=== PATIENT | female | born 1990 | race Caucasian/White ===

== ENCOUNTER 2016-04-03 13:41 | Emergency (ER) | payer MEDICAID ==
[2015-05-01 04:54] VITALS: BMI 36.9
[~2016-04-03 13:41] MED LIST: ADVAIR 500/501 DISK INH; AMBIEN10 MG PO; ANTIBIOTIC; EFFEXOR XR150 MG PO; HYDROCODONE-APA1 TAB PO; IBUPROFEN600 MG PO; IBUPROFEN800 MG PO; KLONOPIN1 MG PO; LAMICTAL200 MG PO; LEVAQUIN; LEVAQUIN500 MG PO; PHENERGAN25 MG RC; ULTRAM50 MG PO; VENTOLIN HFA18 GM INH; VIBRAMYCIN 100100 MG PO; ZITHROMAX250 MG PO; ZOFRAN4 MG PO
[2016-04-03 14:12] LABS: BASOPHILS 0.3 % (0.0-2.0); HEMATOCRIT 40.4 % (36.0-48.0); HEMOGLOBIN 13.5 g/dL (12-16); IMMATURE GRANULOCYTES 0.3 % (0-5); LYMPHOCYTES 32.6 % (15-50); MCHC 33.4 g/dL (31.0-37.0); MCV 95.7 fL (80.0-100.0); MEAN PLATELET VOLUME 10.9 fL (7.4-10.4); MONOCYTES 5.9 % (2-11); NEUTROPHILS 58.9 % (40-80); RBC 4.22 10x6/uL (4.00-5.40); RDW 12.7 % (11.5-14.5); WBC 11.5 10x3/uL (4.8-10.8)
[2016-04-03 14:13] LABS: PLATELET COUNT 194 10x3/uL (130-400)
[2016-04-03 14:14] LABS: UDS - AMPHET POSITIVE QUAL (NEGATIVE); UDS - BARB NEGATIVE QUAL (NEGATIVE); UDS - BENZO POSITIVE QUAL (NEGATIVE); UDS - COCAINE NEGATIVE QUAL (NEGATIVE); UDS - METH NEGATIVE QUAL (NEGATIVE); UDS - OPIATE NEGATIVE QUAL (NEGATIVE); UDS - PCP NEGATIVE QUAL (NEGATIVE); UDS - THC NEGATIVE QUAL (NEGATIVE)
[2016-04-03 14:29] LABS: ALBUMIN 3.8 g/dL (3.4-5.0); ALKALINE PHOSPHATASE 78 U/L (46-116); ALT (SGPT) 21 U/L (10-68); CALC OSMOLALITY 273 mosm/kg (275-300); CALCIUM 8.5 mg/dL (8.5-10.1); CARBON DIOXIDE 27.2 mmol/L (21.0-32.0); CHLORIDE - SERUM 103 mmol/L (98-107); CREATININE - SERUM 0.6 mg/dL (0.6-1.3); GLUCOSE 82 mg/dL (74-106); POTASSIUM - SERUM 4.6 mmol/L (3.5-5.1); PROTEIN - SERUM 6.8 g/dL (6.4-8.2); SODIUM 138 mmol/L (136-145); UREA NITROGEN 10 mg/dL (7-18); eGFR NON AFRICAN AMERICAN > 90 mL/min (90-120)
== END 2016-04-03 15:34 | disposition home or self-care (01) ==
LOC: D.ER 13:41
PROVIDERS: Emergency Medicine
DX: R55 Syncope and collapse (principal); J45.909 Unspecified asthma, uncomplicated; F31.9 Bipolar disorder, unspecified; G47.00 Insomnia, unspecified; F17.200 Nicotine dependence, unspecified, uncomplicated

== ENCOUNTER 2016-10-03 21:24 | Emergency (ER) | payer MEDICAID ==
[2015-05-01 04:54] VITALS: BMI 36.9
[2016-10-03 22:33] LABS: APPEARANCE CLEAR (CLEAR); BILIRUBIN NEGATIVE (NEGATIVE); COLOR YELLOW (YELLOW); GLUCOSE NEGATIVE (NEGATIVE); HCG URINE NEGATIVE (NEGATIVE); KETONE NEGATIVE (NEGATIVE); LEUKOCYTE ESTERASE TRACE (NEGATIVE); NITRITE NEGATIVE (NEGATIVE); PROTEIN NEGATIVE (NEGATIVE); UROBILINOGEN NORMAL (NORMAL)
[2016-10-03 22:36] LABS: EPITHELIAL CELLS 0-5 /hpf (0-5); WHITE CELLS - URINE 0-5 /hpf (0-5)
[2016-10-03 22:37] LABS: BACTERIA MODERATE /hpf (NONE SEEN)
[2016-10-03 22:40] LABS: BASOPHILS 0.2 % (0-2); HEMATOCRIT 40.3 % (36.0-48.0); HEMOGLOBIN 13.4 g/dL (12-16); IMMATURE GRANULOCYTES 0.6 % (0-5); LYMPHOCYTES 33.2 % (15-50); MCH 32.2 pg (26.0-34.0); MCHC 33.3 g/dL (31.0-37.0); MCV 96.9 fL (80.0-100.0); MEAN PLATELET VOLUME 10.7 fL (7.4-10.4); MONOCYTES 4.2 % (2-11); NEUTROPHILS 59.8 % (40-80); PLATELET COUNT 192 10x3/uL (130-400); RBC 4.16 10x6/uL (4.00-5.40); RDW 13.1 % (11.5-14.5); WBC 12.5 10x3/uL (4.8-10.8)
[2016-10-03 22:54] LABS: ALBUMIN 3.8 g/dL (3.4-5.0); ALKALINE PHOSPHATASE 71 U/L (46-116); ALT (SGPT) 22 U/L (10-68); CALC OSMOLALITY 276 mosm/kg (275-300); CALCIUM 8.7 mg/dL (8.5-10.1); CARBON DIOXIDE 28.9 mmol/L (21.0-32.0); CHLORIDE - SERUM 103 mmol/L (98-107); CREATININE - SERUM 0.5 mg/dL (0.6-1.3); GLUCOSE 89 mg/dL (74-106); LIPASE 104 U/L (73-393); POTASSIUM - SERUM 4.1 mmol/L (3.5-5.1); PROTEIN - SERUM 6.9 g/dL (6.4-8.2); SODIUM 140 mmol/L (136-145); UREA NITROGEN 10 mg/dL (7-18); eGFR NON AFRICAN AMERICAN > 90 mL/min (90-120)
== END 2016-10-04 00:50 | disposition home or self-care (01) ==
LOC: D.ER 21:24
PROVIDERS: Emergency Medicine
DX: R10.9 Unspecified abdominal pain (principal); R30.0 Dysuria; F17.200 Nicotine dependence, unspecified, uncomplicated; J45.909 Unspecified asthma, uncomplicated; F31.9 Bipolar disorder, unspecified

== ENCOUNTER 2016-10-15 13:21 | Inpatient (IN) | payer MEDICAID ==
[~2016-10-15] VITALS: Ht 152.4 cm; Wt 61.4 kg
[2016-10-15] VITALS (8 sets, daily range): BP systolic 119–132; BP diastolic 78–97; Ht 152.4 cm; Wt 61.4 kg
[2016-10-15 13:49] LABS: BASOPHILS 0.2 % (0-2); EOSINOPHILS 1.4 % (0-7); HEMATOCRIT 40.1 % (36.0-48.0); HEMOGLOBIN 13.6 g/dL (12-16); IMMATURE GRANULOCYTES 0.3 % (0-5); LYMPHOCYTES 24.5 % (15-50); MCH 32.8 pg (26.0-34.0); MCHC 33.9 g/dL (31.0-37.0); MCV 96.6 fL (80.0-100.0); MEAN PLATELET VOLUME 10.8 fL (7.4-10.4); MONOCYTES 6.1 % (2-11); NEUTROPHILS 67.5 % (40-80); PLATELET COUNT 176 10x3/uL (130-400); RBC 4.15 10x6/uL (4.00-5.40); RDW 12.8 % (11.5-14.5); WBC 11.4 10x3/uL (4.8-10.8)
[2016-10-15 13:55] LABS: APPEARANCE HAZY (CLEAR); BILIRUBIN NEGATIVE (NEGATIVE); COLOR DK YELLOW (YELLOW); GLUCOSE NEGATIVE (NEGATIVE); KETONE NEGATIVE (NEGATIVE); LEUKOCYTE ESTERASE NEGATIVE (NEGATIVE); NITRITE NEGATIVE (NEGATIVE); PROTEIN NEGATIVE (NEGATIVE); UROBILINOGEN NORMAL (NORMAL)
[2016-10-15 14:04] LABS: UDS - AMPHET POSITIVE QUAL (NEGATIVE); UDS - BARB NEGATIVE QUAL (NEGATIVE); UDS - BENZO POSITIVE QUAL (NEGATIVE); UDS - COCAINE NEGATIVE QUAL (NEGATIVE); UDS - METH NEGATIVE QUAL (NEGATIVE); UDS - OPIATE NEGATIVE QUAL (NEGATIVE); UDS - PCP NEGATIVE QUAL (NEGATIVE); UDS - THC POSITIVE QUAL (NEGATIVE)
[2016-10-15 14:06] LABS: HCG SERUM NEGATIVE (NEGATIVE)
[2016-10-15 14:10] LABS: ALBUMIN 4.1 g/dL (3.4-5.0); ALKALINE PHOSPHATASE 89 U/L (46-116); ALT (SGPT) 22 U/L (10-68); CALC OSMOLALITY 272 mosm/kg (275-300); CALCIUM 8.6 mg/dL (8.5-10.1); CARBON DIOXIDE 31.8 mmol/L (21.0-32.0); CHLORIDE - SERUM 100 mmol/L (98-107); CREATININE - SERUM 0.6 mg/dL (0.6-1.3); GLUCOSE 94 mg/dL (74-106); POTASSIUM - SERUM 3.4 mmol/L (3.5-5.1); PROTEIN - SERUM 7.1 g/dL (6.4-8.2); SODIUM 137 mmol/L (136-145); UREA NITROGEN 11 mg/dL (7-18); eGFR NON AFRICAN AMERICAN > 90 mL/min (90-120)
--- NOTE | 2016-10-15 16:00 | NUR ---
REC'D FROM ER VIA STRETCHER. TRANSFER TO ICU BED BY TOTAL LIFT. CONNECTED TO MONITOR AND VS OBTAINED. UNABLE TO OBTAIN COMPLETE HISTORY. ASSESSMENT COMPLETE.
--- NOTE | 2016-10-15 19:15 | NUR ---
SHIFT ASSESSMENT COMPLETED. SEE ASSESSMENT. WILL AWAKE BRIEFLY TO ANSWER QUESTIONS THEN FALLS BACK ASLEEP. LEFT NARE NGT CLAMPED AT APPROX. 70CM. BLACK CHARCOAL NOTED IN TUBING. LEFT AC PIV WITH NS @ 200ML/HR. DENIES NEED TO VOID AT THIS TIME. SCD'S ON AND WORKING TO BILATERAL LE'S. CLEAR LUNGS TO AUSCULTATION. DIMINISHED IN THE BASES. WILL MONITOR.
--- NOTE | 2016-10-15 20:45 | NUR ---
[facility] POISON CONTROL CALLED TO GET UPDATE. UPDATED ON VITALS AND LAB RESULTS. EYES CLOSED. NO ACUTE DISTRESS NOTED. WILL MONITOR.
--- NOTE | 2016-10-15 21:00 | NUR ---
MOM AT BEDSIDE FOR VISITATION. HOME MEDS LOOKED AT WITH HER MOM.
--- NOTE | 2016-10-15 22:15 | NUR ---
UNABLE TO USE BEDPAN TO URINATE. REFUSES TO HAVE GONSALEZ CATHETER AT THIS TIME. TOTAL LINEN CHANGE AT THIS TIME DUE TO INCONTINENCE OF BOWEL.
--- NOTE | 2016-10-15 22:30 | NUR ---
MOM OBTAINED FROM WAITING ROOM NOW SHE IS MORE AWAKE. WITH ASSIST X2 WAS ABLE TO PIVOT TO BEDSIDE COMMODE. HAD A LARGE, BLACK, LIQUID BM AND URINATED. BOTH TOTALED APPROX. 500ML. BACK TO BED. BED ALARM ON. MOM TALKED WITH HER FOR A FEW MINUTES THEN SHE WENT BACK TO WAITING ROOM. WILL MONITOR.
[2016-10-15] MEDS ORDERED: CLONAZEPAM2 MG/TAB PO (23:47)
[2016-10-15] MEDS ORDERED: ZOFRAN ODT4 MG/UDTAB PO (23:48)
[2016-10-15] MEDS ORDERED: LEXAPRO20 MG PO (23:50)
[2016-10-15] MEDS ORDERED: ADDERALL 10 MG10 MG PO (23:50)
[2016-10-15] MEDS ORDERED: AMBIEN10 MG PO (23:51)
[2016-10-15] MEDS ORDERED: LAMICTAL150 MG PO (23:52)
[2016-10-15] MEDS ORDERED: DESERYL100 MG PO (23:52)
[2016-10-16] VITALS (23 sets, daily range): BP systolic 100–144; BP diastolic 31–100
--- NOTE | 2016-10-16 00:30 | NUR ---
LAYING ON RT SIDE. NO ACUTE DISTRESS NOTED. WILL MONITOR.
--- NOTE | 2016-10-16 02:00 | NUR ---
RETOOK B/P DUE TO LOW READING. BACK TO BASELINE AFTER ADJUSTED ARM AND CUFF. WILL MONITOR. EYES REMAIN CLOSED. RESP RATE 14. WILL MONITOR.
--- NOTE | 2016-10-16 03:00 | NUR ---
DENIES NEEDING THE BATHROOM TO VOID. REPORTS "I'M FREEZING". TURNED UP TEMPERATURE IN ROOM WARMER. TEMP ASSESSED TEMPORALLY. TEMP 97.6. REASSESSMENT COMPLETED. SEE ASSESSMENT FLOWSHEET. WILL MONITOR.
--- NOTE | 2016-10-16 04:00 | NUR ---
MOISE, PHLEBO AT BEDSIDE TO DRAW AM LABS. AWOKE BRIEFLY. WILL MONITOR.
[2016-10-16 04:19] LABS: BASOPHILS 0.2 % (0-2); EOSINOPHILS 1.8 % (0-7); HEMATOCRIT 39.4 % (36.0-48.0); IMMATURE GRANULOCYTES 0.3 % (0-5); LYMPHOCYTES 29.7 % (15-50); MEAN PLATELET VOLUME 10.7 fL (7.4-10.4); PLATELET COUNT 173 10x3/uL (130-400); RBC 4.06 10x6/uL (4.00-5.40); RDW 12.9 % (11.5-14.5); WBC 11.1 10x3/uL (4.8-10.8)
[2016-10-16 04:36] LABS: ALBUMIN 3.3 g/dL (3.4-5.0); ALKALINE PHOSPHATASE 73 U/L (46-116); ALT (SGPT) 19 U/L (10-68); BILIRUBIN - TOTAL 0.34 mg/dL (0.2-1.3); CALC OSMOLALITY 278 mosm/kg (275-300); CALCIUM 7.4 mg/dL (8.5-10.1); CARBON DIOXIDE 27.7 mmol/L (21.0-32.0); CHLORIDE - SERUM 107 mmol/L (98-107); CREATININE - SERUM 0.5 mg/dL (0.6-1.3); GLUCOSE 97 mg/dL (74-106); POTASSIUM - SERUM 3.2 mmol/L (3.5-5.1); PROTEIN - SERUM 6.1 g/dL (6.4-8.2); SODIUM 141 mmol/L (136-145); eGFR NON AFRICAN AMERICAN > 90 mL/min (90-120)
[2016-10-16 04:37] LABS: UREA NITROGEN 6 mg/dL (7-18)
--- NOTE | 2016-10-16 05:55 | NUR ---
TURNED SELF TO LEFT SIDE. COVERED BACK SIDE WITH COVERS. NOT INCONTINENT OF BOWEL NOTED AT THIS TIME. WILL MONITOR.
--- NOTE | 2016-10-16 06:28 | NUR ---
DR. LAND SPOKE WITH MOM AT BEDSIDE.
--- NOTE | 2016-10-16 07:38 | NUR ---
CONSULT FOR DR. RUTLEDGE FAXED TO [facility]. ARRIVAL OF FAX VERIFIED BY JOSE.
--- NOTE | 2016-10-16 19:00 | NUR ---
REPORT RECEIVED. ASSESSMENT COMPLETE PER FLOW SHEET. PT LAYING IN BED ALERT AND ORIENTED. SPEECH CLEAR. PUPILS SIZE 4 MM, BRISK REACTION. EYES ARE EDEMATOUS. MUCOUS MEMBRANES MOIST. S1S2 PRESENT. TELEMETRY MONITORING SINUS RHYTHM RATE OF 76. LT AC PIV INFUSING NS AT 125 MLS/HR, DRESSING CDI. BS ACTIVE X4. RADIAL AND POPLITEAL PULSES PALP. CAPILLARY REFILL <3 SECS UPPER AND LOWER EXTREMITIES. SKIN WARM AND DRY. SCDS ON. BED IN LOWEST POSITION. CALL LIGHT WITHIN REACH. DENIES NEEDS AT THIS TIME. WILL CONTINUE TO MONITOR.
--- NOTE | 2016-10-16 21:00 | NUR ---
NO VISITORS AT THIS TIME. MEDICATION ADMINISTERED PER EMAR. VSS. DENIES NEEDS AT THIS TIME. CALL LIGHT WITHIN REACH. BED IN LOWEST POSITION.
--- NOTE | 2016-10-16 22:10 | NUR ---
ASSISSTED PT TO BED SIDE COMMODE. LILIBETH MCCLUREING PROVIDED PER REQUEST. PT BACK IN BED. VSS. DENIES FURTHER NEEDS AT THIS TIME. WILL CONTINUE TO MONITOR.
--- NOTE | 2016-10-16 23:00 | NUR ---
REASSESSMENT COMPLETE PER FLOW SHEET, SEE FOR DETAILS. VSS. SODA PROVIDED PER REQUEST. BED IN LOWEST POSITION. CALL LIGHT WITHIN REACH. WILL CONTINUE TO MONITOR.
--- NOTE | 2016-10-16 23:20 | NUR ---
LAYING IN BED, TEARFUL. SAT DOWN NEXT TO HER AND LISTENED SHE DISCUSSED WHY SHE WAS ADMITTED. PT DENIES THE NEED FOR SELF-HARM. INFORMED HER THAT SHE CAN PUSH THE CALL LIGHT IF SHE NEEDS ANYTHING OR SOMEONE TO TALK TO. PT WAS APPRECIATIVE AND VERBALIZED UNDERSTANDING. DENIES FURTHER NEEDS AT THIS TIME. CALL LIGHT WITHIN REACH. BED IN LOWEST POSITION. WILL CONTINUE TO MONITOR.
[2016-10-17] VITALS (19 sets, daily range): BP systolic 103–133; BP diastolic 59–89
--- NOTE | 2016-10-17 01:00 | NUR ---
LAYING IN BED SLEEPING. VSS. WILL CONTINUE TO MONITOR.
--- NOTE | 2016-10-17 02:03 | NUR ---
AWAKE, VANILLA PUDDING PROVIDED PER REQUEST. VSS. DENIES FURTHER NEEDS AT THIS TIME. CALL LIGHT WITHIN REACH.
--- NOTE | 2016-10-17 03:00 | NUR ---
REASSESSMENT COMPLETE PER FLOW SHEET, SEE FOR DETAILS. NO ACUTE CHANGES NOTED. DENIES NEEDS AT THIS TIME. VSS. CALL LIGHT WITHIN REACH. BED IN LOWEST POSITION. WILL CONTINUE TO MONITOR.
[2016-10-17 04:19] LABS: BASOPHILS 0.2 % (0-2); EOSINOPHILS 2.6 % (0-7); HEMATOCRIT 36.5 % (36.0-48.0); IMMATURE GRANULOCYTES 0.4 % (0-5); LYMPHOCYTES 30.9 % (15-50); MCH 32.3 pg (26.0-34.0); MCHC 32.9 g/dL (31.0-37.0); MCV 98.4 fL (80.0-100.0); MEAN PLATELET VOLUME 10.7 fL (7.4-10.4); NEUTROPHILS 58.9 % (40-80); PLATELET COUNT 165 10x3/uL (130-400); RBC 3.71 10x6/uL (4.00-5.40); WBC 11.4 10x3/uL (4.8-10.8)
[2016-10-17 04:30] LABS: CALC OSMOLALITY 275 mosm/kg (275-300); CALCIUM 7.7 mg/dL (8.5-10.1); CARBON DIOXIDE 26.8 mmol/L (21.0-32.0); CHLORIDE - SERUM 108 mmol/L (98-107); CREATININE - SERUM 0.5 mg/dL (0.6-1.3); GLUCOSE 103 mg/dL (74-106); POTASSIUM - SERUM 3.6 mmol/L (3.5-5.1); SODIUM 140 mmol/L (136-145); eGFR NON AFRICAN AMERICAN > 90 mL/min (90-120)
[2016-10-17 04:32] LABS: UREA NITROGEN 4 mg/dL (7-18)
--- NOTE | 2016-10-17 05:00 | NUR ---
LAYING IN BED RESTING. VSS. BED IN LOWEST POSITION. CALL LIGHT WITHIN REACH. WILL CONTINUE TO MONITOR.
--- NOTE | 2016-10-17 07:15 | NUR ---
PATIENT UP TO BSC WITHOUT ASSIST. PATIENT DENIES ANY NEEDS AT THIS TIME. CALL LIGHT WITHIN REACH, AND BED IN LOW POSITION. PATIENT VOIDED APPROX. 500ML OF CLEAR YELLOW URINE.
--- NOTE | 2016-10-17 08:16 | NUR ---
SHIFT ASSESSMENT COMPLETE. PATIENT DENIES ANY FEELINGS OF SUCIDAL IDEATIONS. PATIENT IS TALKATIVE AND TEARS UP WHEN IF SHE STILL WANTS TO HARM HERSELF. PATIENT STATES NO THAT SHE WANTS TO GO HOME TO HER KIDS. PATIENT STATES THAT SHE STOPPED TAKING HER MEDS BECAUSE SHE FELT SHE WAS DOING BETTER. CALL LIGHT WITHIN REACH, AND BED IN LOW POSITION.
--- NOTE | 2016-10-17 10:01 | NUR ---
* Is the patient Alert and Oriented? Yes 0 * PCP None 0 * Pharmacy [facility] [address] * Preadmission Environment Home with Family 0 * ADLs Independent 0 * List name and contact numbers for known caregivers / representatives who currently or will assist patient after discharge: Mother - Maren Kaur [phone] * Has this patient been hospitalized within the prior 30 days at any hospital? No 10/17/2016 10:02 DCP: Discharge Planning Patient Name: PATTIE GHOSH Admission Status: ER Accout number: [id number] Admission Date: 10-15-2016 : 1990 Admission Diagnosis: Attending: ALEX Current LOS: 2 Anticipated DC Date: 10-17-2016 Planned Disposition: Psych facility Primary Insurance: MEDICAID [place] Discharge Planning Comments: CM met with patient to assess dc plans/needs. Patient is alert & oriented. She states she no longer wants to harm herself. She states she quit taking her medications "because I thought I was better". She states she does not have a local PCP. She states she see's Dr. Fernandez (psychiatrist) @ [facility] regularly. She states she has recently from her & is living with her mother & her two children, ages 17months & 8 years old. She states her mother is a good support system for her & the home is a safe environment. She does not want inpatient psych treatment. Explained we are waiting for psychiatrist to evaluate her form recommendations. Verbalized understanding. CM will follow & assist as needed.
--- NOTE | 2016-10-17 11:36 | NUR ---
PATIENT AROUSES EASILY TO VERBAL STIMULI. PATIENT DENIES ANY PAIN OR NEEDS AT THIS TIME. CALL LIGHT WITHIN REACH, AND BED IN LOW POSITION.
--- NOTE | 2016-10-17 12:10 | NUR ---
DR. RUTLEDGE IN WITH PATIENT. PATIENT IS TALKING WITH NO DISTRESS NOTED.
--- NOTE | 2016-10-17 13:00 | NUR ---
PATIENT DEINES ANY NEEDS AT THIS TIME. CONSUMED 100% OF LUNCH. IV INTACT AND PATENT. CALL LIGHT WITHIN REACH, AND BED IN LOW POSITION.
--- NOTE | 2016-10-17 15:00 | NUR ---
PATIENT IS SLEEPING WITHOUT DISTRESS. V/S WITNIN NORMAL LIMITS.
--- NOTE | 2016-10-17 15:26 | NUR ---
10/17/2016 15:26 DCP: Discharge Planning Dr. Wallace's note reviewed. Patient will discharge home today. She will need to follow up at [facility] (formerly [facility] @ [address], [phone] - This is a walk in clinic - once she is seen there, they will schedule her based on evaluation. She can go M-Th between 0830 to 1530 or Monday between [phone]. Nurse/City Assessor will schedule follow up with Dr. Sheehan in [place].
--- NOTE | 2016-10-17 17:06 | NUR ---
IV DC'D CATH INTACT, SITE IS HEALTHY, PRESSURE APPLIED WITH 4X4, AND PAPER TAPE.
--- NOTE | 2016-10-17 17:10 | NUR ---
PATIENT DISCHARGED TO POV VIA W/C AT FRONT ENTRANCE WITH MOTHER. PATIENT TRANSFERRED SELF FROM W/C TO POV WITH STEADY GAIT.
--- NOTE | 2016-10-18 10:17 | CN ---
PATIENT NAME:PATTIE GHOSH MEDICAL RECORD: [id number] : [birth year] LOCATION:[id number] ADMIT DATE: 10/15/16 ACCOUNT: [id number] CONSULTING PHYSICIAN: MANAN RUTLEDGE III, MD REFERRING PHYSICIAN: OBEY LAND MD DATE OF CONSULTATION: 10/17/2016 Psychiatry Consultation FINDINGS: This is a 26-year-old female, who was admitted 2 days ago following an overdose on trazodone and Ambien. The patient stated that she had been off of her routine psychiatric medications for a couple of days. She had an argument with her and became very distraught and impulsively overdosed. Prior to this time, the patient states that she had been sleeping very poorly. She states that she has been under considerable stress at her job, which she recently lost. She stated that the employer had failed to pay her on a regular basis. The patient is previously . She has an 8-year-old son and a [id number] child, who are currently living with her. She remains and states that she believes the marriage is stable, although she does admit on her , has some psychiatric issues of his own. PAST PSYCHIATRIC HISTORY: Includes hospitalization at [facility] when she was about 16 years old. She does admit to a past history of substance abuse. She states that she has not been hospitalized since that time. She separately received a diagnosis of bipolar disorder and has been tried on several different mood stabilizing medications. She has been taking a lamotrigine (Lamictal) for several years and appears to be stable on it. She also takes escitalopram (Lexapro) for control of depressive symptoms. About 9 months ago, she was placed on Adderall. She stated that she was given this "so I could focus better." She does not have a previous history of attention deficit disorder or ADHD. In addition to these medications, she takes benzodiazepines on a fairly routine basis. She takes hypnotics for sleep. On exam, the patient was very pleasant and cooperative. She is quite knowledgeable about bipolar disorder and has obviously had frequent contact with her outpatient psychiatrist. Mood during the interview was for the most part euthymic, but occasionally dysphoric and tearful. Affect is fairly well controlled. Speech fluent. Content of thought is negative for overt psychosis and no evidence of suicidality. Sensorium is fairly clear. DIAGNOSTIC IMPRESSION: AXIS I: Bipolar disorder -- probable bipolar type 2. PLAN: Based on her current support system including easy access to her psychiatrist in [place], we will recommend the patient can be discharged home when medically stable. She should, however, be referred to [facility], so that supportive counseling can be set up that she can access on a regular basis. CONSULT REPORT [id number] PATTIE GHOSH ALYCE TRANSINT:[id number] Voice Confirmation ID: [id number] DOCUMENT ID: [id number] MANAN RUTLEDGE III, MD at 1017 CC: [id number] DICTATION DATE: 10/17/16 1233 INFORMATION ARCHITECT: 10/17/16 1455 DIS IN 10/17/16 [facility] [address] [place] [address]
== END 2016-10-17 17:30 | disposition home or self-care (01) | DRG 918 ==
LOC: D.ER 13:21 → D.ICU 15:15 → OBSVTIME 15:15 → D.ICU 15:54
PROVIDERS: Family Medicine; ADMIT Family Medicine
DX: T43.212A Poisoning by selective serotonin and norepinephrine reuptake inhibitors, intentional self-harm, initial encounter (principal); F31.81 Bipolar II disorder; T42.6X2A Poisoning by other antiepileptic and sedative-hypnotic drugs, intentional self-harm, initial encounter; F90.9 Attention-deficit hyperactivity disorder, unspecified type; E87.6 Hypokalemia; F12.10 Cannabis abuse, uncomplicated

== ENCOUNTER 2016-12-01 05:19 | Day surgery (SDC) | payer MEDICAID ==
[~2016-12-01] VITALS: Ht 152.4 cm; Wt 65.8 kg
[~2016-12-01 05:19] MED LIST changes: +ADDERALL 10 MG10 MG PO; +CLONAZEPAM2 MG/TAB PO; +DESERYL100 MG PO; +LAMICTAL150 MG PO; +LEXAPRO20 MG PO; +ZOFRAN ODT4 MG/UDTAB PO
[2016-12-01 06:20] VITALS: BP 116/64; Ht 152.4 cm; Wt 65.8 kg
== END 2016-12-01 09:45 | disposition home or self-care (01) ==
LOC: D.OPS 05:19 → D.PAN 07:30 → D.OPS 09:45
DX: Z30.432 Encounter for removal of intrauterine contraceptive device (principal); F31.9 Bipolar disorder, unspecified; J45.909 Unspecified asthma, uncomplicated

== ENCOUNTER 2016-12-21 19:47 | Emergency (ER) | payer MEDICAID ==
[2016-12-01 06:20] VITALS: BMI 28.3
== END 2016-12-21 22:30 | disposition home or self-care (01) ==
LOC: D.ER 19:47
DX: S93.402A Sprain of unspecified ligament of left ankle, initial encounter (principal); X50.1XXA Overexertion from prolonged static or awkward postures, initial encounter; Y93.89 Activity, other specified; Y92.029 Unspecified place in mobile home as the place of occurrence of the external cause

== ENCOUNTER → 2016-12-28 10:31 | Outpatient (CLI) | payer MEDICAID ==
[2016-12-01 06:20] VITALS: BMI 28.3
== END | disposition home or self-care (01) ==
LOC: D.US 12-26 11:30
DX: N60.02 Solitary cyst of left breast (principal)

== ENCOUNTER → 2017-08-18 15:28 | Outpatient (CLI) | payer MEDICAID ==
[2016-12-01 06:20] VITALS: BMI 28.3
[2017-08-18 16:46] LABS: APPEARANCE HAZY (CLEAR); BILIRUBIN NEGATIVE (NEGATIVE); COLOR YELLOW (YELLOW); GLUCOSE NEGATIVE (NEGATIVE); KETONE NEGATIVE (NEGATIVE); NITRITE NEGATIVE (NEGATIVE); PROTEIN NEGATIVE (NEGATIVE); SPECIFIC GRAVITY 1.015 (1.005-1.020); UROBILINOGEN NORMAL (NORMAL)
[2017-08-18 16:47] LABS: RED CELLS - URINE 0-5 /hpf (0-5); WHITE CELLS - URINE 0-5 /hpf (0-5)
[2017-08-18 16:48] LABS: BACTERIA MODERATE /hpf (NONE SEEN); EPITHELIAL CELLS 0-5 /hpf (0-5)
[2017-08-18 16:56] LABS: UDS - AMPHET NEGATIVE QUAL (NEGATIVE); UDS - BARB NEGATIVE QUAL (NEGATIVE); UDS - BENZO POSITIVE QUAL (NEGATIVE); UDS - COCAINE NEGATIVE QUAL (NEGATIVE); UDS - OPIATE NEGATIVE QUAL (NEGATIVE); UDS - PCP NEGATIVE QUAL (NEGATIVE); UDS - THC POSITIVE QUAL (NEGATIVE)
[2017-08-25 22:09] LABS: UDSC - AMPHET Negative ng/mL (Cutoff=1000); UDSC - BARB Negative ng/mL (Cutoff=300); UDSC - BENZO Negative ng/mL (Cutoff=300); UDSC - COC Negative ng/mL (Cutoff=300); UDSC - METH Negative ng/mL (Cutoff=300); UDSC - OPIATES Negative ng/mL (Cutoff=300); UDSC - PCP Negative ng/mL (Cutoff=25); UDSC - PROPOXY Negative ng/mL (Cutoff=300); UDSC - THC Positive (Cutoff=50)
== END | disposition home or self-care (01) ==
LOC: D.LDO 15:28
PROVIDERS: Obstetrics & Gynecology
DX: O26.892 Other specified pregnancy related conditions, second trimester (principal); Z3A.28 28 weeks gestation of pregnancy; R11.2 Nausea with vomiting, unspecified; R10.9 Unspecified abdominal pain

== ENCOUNTER 2018-06-27 21:59 | Emergency (ER) | payer MEDICAID ==
[~2018-06-27] VITALS: Ht 152.4 cm; Wt 72.7 kg
[2018-06-27 22:05] VITALS: Ht 152.4 cm; Wt 72.7 kg
[2018-06-27] MEDS ORDERED: SEROQUEL200 MG PO (22:07)
[2018-06-27] MEDS ORDERED: VOLTAREN75 MG PO (23:03)
[2018-06-27 23:31] VITALS: BP 113/65
== END 2018-06-27 23:32 | disposition home or self-care (01) ==
LOC: D.ER 21:59
DX: S93.402A Sprain of unspecified ligament of left ankle, initial encounter (principal); W19.XXXA Unspecified fall, initial encounter

== ENCOUNTER 2018-07-05 18:32 | Emergency (ER) | payer MEDICAID ==
[~2018-07-05] VITALS: Ht 152.4 cm; Wt 68.2 kg
[~2018-07-05 18:32] MED LIST changes: +SEROQUEL200 MG PO; +VOLTAREN75 MG PO
[2018-07-05 18:56] VITALS: Ht 152.4 cm; Wt 68.2 kg
[2018-07-05] MEDS ORDERED: ULTRAM50 MG PO (20:21)
[2018-07-05 20:51] VITALS: BP 131/70
== END 2018-07-05 20:52 | disposition home or self-care (01) ==
LOC: D.ER 18:32
DX: M25.572 Pain in left ankle and joints of left foot (principal); J45.909 Unspecified asthma, uncomplicated; F17.200 Nicotine dependence, unspecified, uncomplicated

== ENCOUNTER 2018-07-26 18:12 | Emergency (ER) | payer MEDICAID ==
[~2018-07-26] VITALS: Ht 152.4 cm; Wt 72.7 kg
[2018-07-26 18:19] VITALS: Ht 152.4 cm; Wt 72.7 kg
[2018-07-26 19:14] LABS: APPEARANCE CLEAR (CLEAR); BILIRUBIN NEGATIVE (NEGATIVE); COLOR YELLOW (YELLOW); GLUCOSE NEGATIVE (NEGATIVE); KETONE NEGATIVE (NEGATIVE); NITRITE NEGATIVE (NEGATIVE); PROTEIN NEGATIVE (NEGATIVE); SPECIFIC GRAVITY 1.025 (1.005-1.020); UROBILINOGEN NORMAL (NORMAL)
[2018-07-26 19:15] LABS: BASOPHILS 0.2 % (0-2); EOSINOPHILS 1.5 % (0-7); HEMATOCRIT 39.9 % (36.0-48.0); HEMOGLOBIN 13.6 g/dL (12-16); IMMATURE GRANULOCYTES 0.6 % (0-5); LYMPHOCYTES 26.3 % (15-50); MCH 31.5 pg (26.0-34.0); MCHC 34.1 g/dL (31.0-37.0); MCV 92.4 fL (80.0-100.0); MEAN PLATELET VOLUME 10.3 fL (7.4-10.4); MONOCYTES 6.9 % (2-11); NEUTROPHILS 64.5 % (40-80); RBC 4.32 10x6/uL (4.00-5.40); RDW 14.1 % (11.5-14.5); WBC 13.1 10x3/uL (4.8-10.8)
[2018-07-26 19:16] LABS: PLATELET COUNT 229 10x3/uL (130-400)
[2018-07-26 19:36] LABS: ALKALINE PHOSPHATASE 87 U/L (46-116); ALT (SGPT) 23 U/L (10-68); BILIRUBIN - TOTAL 0.23 mg/dL (0.2-1.3); CALC OSMOLALITY 280 mosm/kg (275-300); CALCIUM 9.6 mg/dL (8.5-10.1); CARBON DIOXIDE 24.4 mmol/L (21.0-32.0); CHLORIDE - SERUM 104 mmol/L (98-107); CREATININE - SERUM 0.7 mg/dL (0.6-1.3); GLUCOSE 106 mg/dL (74-106); POTASSIUM - SERUM 3.9 mmol/L (3.5-5.1); PROTEIN - SERUM 7.8 g/dL (6.4-8.2); SODIUM 141 mmol/L (136-145); UREA NITROGEN 13 mg/dL (7-18); eGFR NON AFRICAN AMERICAN > 90 mL/min (90-120)
[2018-07-26 19:39] LABS: INR 1.01 (0.85-1.17); PROTIME 12.8 SECONDS (11.6-15.0)
[2018-07-26 19:40] LABS: APTT 28.1 SECONDS (22.8-39.4)
[2018-07-26 19:42] LABS: HCG SERUM NEGATIVE (NEGATIVE)
[2018-07-26 22:11] VITALS: BP 113/75
== END 2018-07-26 21:50 | disposition home or self-care (01) ==
LOC: D.ER 18:12
PROVIDERS: Family Medicine
DX: S30.811A Abrasion of abdominal wall, initial encounter (principal); V43.52XA Car driver injured in collision with other type car in traffic accident, initial encounter; Y93.89 Activity, other specified; Y92.410 Unspecified street and highway as the place of occurrence of the external cause

== ENCOUNTER 2018-12-24 11:39 | Emergency (ER) | payer MEDICAID ==
[~2018-12-24] VITALS: Ht 152.4 cm; Wt 63.6 kg
[2018-12-24 12:09] VITALS: Ht 152.4 cm; Wt 63.6 kg
[2018-12-24 12:41] LABS: BASOPHILS 0.2 % (0-2); EOSINOPHILS 0.2 % (0-7); HEMATOCRIT 39.8 % (36.0-48.0); HEMOGLOBIN 12.9 g/dL (12-16); MCH 31.5 pg (26.0-34.0); MCHC 32.4 g/dL (31.0-37.0); MCV 97.1 fL (80.0-100.0); MONOCYTES 3.2 % (2-11); NEUTROPHILS 88.4 % (40-80); PLATELET COUNT 222 10x3/uL (130-400); RDW 13.1 % (11.5-14.5); WBC 13.1 10x3/uL (4.8-10.8)
[2018-12-24 12:53] LABS: ALKALINE PHOSPHATASE 105 U/L (46-116); ALT (SGPT) 35 U/L (10-68); AMYLASE - SERUM 34 U/L (25-115); BILIRUBIN - TOTAL 0.22 mg/dL (0.2-1.3); CALC OSMOLALITY 277 mosm/kg (275-300); CALCIUM 8.8 mg/dL (8.5-10.1); CARBON DIOXIDE 28.2 mmol/L (21.0-32.0); CHLORIDE - SERUM 102 mmol/L (98-107); CREATININE - SERUM 0.8 mg/dL (0.6-1.3); GLUCOSE 124 mg/dL (74-106); LIPASE 87 U/L (73-393); POTASSIUM - SERUM 4.6 mmol/L (3.5-5.1); SODIUM 139 mmol/L (136-145); UREA NITROGEN 9 mg/dL (7-18); eGFR NON AFRICAN AMERICAN 89 mL/min (90-120)
[2018-12-24 15:45] LABS: APPEARANCE HAZY (CLEAR); BILIRUBIN NEGATIVE (NEGATIVE); COLOR YELLOW (YELLOW); GLUCOSE NEGATIVE (NEGATIVE); KETONE NEGATIVE (NEGATIVE); NITRITE NEGATIVE (NEGATIVE); PROTEIN NEGATIVE (NEGATIVE); SPECIFIC GRAVITY 1.025 (1.005-1.020); UROBILINOGEN NORMAL (NORMAL)
[2018-12-24 15:49] LABS: EPITHELIAL CELLS 0-5 /hpf (0-5); RED CELLS - URINE 0-5 /hpf (0-5); WHITE CELLS - URINE 0-5 /hpf (NEGATIVE)
[2018-12-24 15:50] LABS: BACTERIA MODERATE /hpf (NEGATIVE); MUCUS <1+ /lpf (NONE SEEN)
[2018-12-24] MEDS ORDERED: FLAGYL500 MG PO (17:57)
[2018-12-24] MEDS ORDERED: ZOFRAN8 MG PO (17:57)
[2018-12-24] MEDS ORDERED: LEVOFLOXACIN500 MG PO (17:57)
[2018-12-24 18:10] VITALS: BP 119/73
== END 2018-12-24 18:10 | disposition home or self-care (01) ==
LOC: D.ER 11:39
PROVIDERS: Emergency Medicine
DX: R11.2 Nausea with vomiting, unspecified (principal); R10.9 Unspecified abdominal pain; F17.200 Nicotine dependence, unspecified, uncomplicated; J45.909 Unspecified asthma, uncomplicated

== ENCOUNTER 2019-09-02 19:38 | Emergency (ER) | payer MEDICAID ==
[~2019-09-02] VITALS: Ht 152.4 cm; Wt 65.9 kg
[~2019-09-02 19:38] MED LIST changes: +FLAGYL500 MG PO; +LEVOFLOXACIN500 MG PO; +ZOFRAN8 MG PO
[2019-09-02 19:50] VITALS: Ht 152.4 cm; Wt 65.9 kg
[2019-09-02 21:37] LABS: BILIRUBIN NEGATIVE (NEGATIVE); GLUCOSE NEGATIVE (NEGATIVE); KETONE NEGATIVE (NEGATIVE); NITRITE NEGATIVE (NEGATIVE); SPECIFIC GRAVITY 1.025 (1.005-1.020); UROBILINOGEN NORMAL (NORMAL)
[2019-09-02 21:41] LABS: HCG URINE NEGATIVE (NEGATIVE)
[2019-09-02] MEDS ORDERED: HYDROCODON-ACE1 EAC7 PO (23:03)
[2019-09-02] MEDS ORDERED: VOLTAREN75 MG PO (23:03)
[2019-09-02] MEDS ORDERED: MEDROL DOSE PACK4 MG PO (23:03)
[2019-09-02 23:33] VITALS: BP 132/88
== END 2019-09-02 23:33 | disposition home or self-care (01) ==
LOC: D.ER 19:38
PROVIDERS: Family Medicine
DX: M54.5 Low back pain (principal); M54.16 Radiculopathy, lumbar region; M48.061 Spinal stenosis, lumbar region without neurogenic claudication